=== PATIENT | female | born 1990 | race Caucasian/White ===

== ENCOUNTER 2022-02-22 02:22 | Emergency (ER) | payer MEDICAID ==
[~2022-02-22] VITALS: Ht 162.6 cm; Wt 82.3 kg
[2022-02-22 02:30] VITALS: BP 126/76
--- NOTE | 2022-02-22 02:34 | NUR ---
PT TO BED 11
--- NOTE | 2022-02-22 02:36 | NUR ---
Patient BIB by family from home. C/O toothache x 3 weeks, Patient reported, had broken teeth, right upper and lower molars for 3 weeks. Patient did not go to dental , due to [place] time and busy with her schedule. A/O,X4, right side toothache, pain rate 10/10, radiate to right facial and right temporal area.
--- NOTE | 2022-02-22 02:44 | NUR ---
Dr. Cox examining patient.
[2022-02-22] MEDS ORDERED: NAPR-54 PO (02:52)
[2022-02-22] MEDS ORDERED: PENI500T20 PO (02:52)
[2022-02-22 03:00] VITALS: BP 126/76
--- NOTE | 2022-02-22 03:00 | NUR ---
Patient discharged with v/s stable. Written and verbal after care instructions given and explained. Patient alert, oriented and verbalized understanding of instructions. Ambulatory with steady gait. All questions addressed prior to discharge. ID band removed. Patient advised to follow up with PMD. Rx of NAPROSYN AND AMOX V POTASSIUM given. Patient educated on indication of medication including possible reaction and side effects. Opportunity to ask questions provided and answered.
== END 2022-02-22 03:00 | disposition home or self-care (01) ==
LOC: MED 02:22
DX: K02.9 Dental caries, unspecified (principal); Z88.1 Allergy status to other antibiotic agents; Z79.899 Other long term (current) drug therapy
CPT/HCPCS: 99283

== ENCOUNTER 2022-05-26 05:15 | Emergency (ER) | payer MEDICAID ==
[~2022-05-26] VITALS: Ht 162.6 cm; Wt 72.6 kg
[2022-05-26 05:15] VITALS: BP 130/95
[~2022-05-26 05:15] MED LIST: NAPR-54 PO; PENI500T20 PO
[2022-05-26] MEDS ORDERED: NACL 0.9% 1,000 ML IV ONE (05:35)
[2022-05-26] MEDS ORDERED: LACTULOSE 20 GM/30 ML UDC PO ONE (05:40)
[2022-05-26] MEDS ORDERED: POLYETHYLENE GLYCOL 17 GM/PKT PO ONE (05:40)
--- NOTE | 2022-05-26 06:11 | NUR ---
Dr. Aceves examining patient.
[2022-05-26 06:13] LABS: BASOPHILS # (AUTO) 0.1 K/uL (0.00-0.22); BASOPHILS % (AUTO) 0.6 % (0.0-2.0); EOSINOPHILS # (AUTO) 0.3 K/uL (0-0.4); EOSINOPHILS % (AUTO) 3.1 % (0.0-4.0); HEMATOCRIT 39.8 % (36-48); HEMOGLOBIN 13.4 g/dL (12.0-16.0); LYMPHOCYTES # (AUTO) 2.5 K/uL (2.5-16.5); LYMPHOCYTES % (AUTO) 28.2 % (20.5-51.1); MEAN CORPUSCULAR HEMOGLOBIN 28 pg (27-31); MEAN CORPUSCULAR HGB CONC 34 g/dL (33-37); MEAN CORPUSCULAR VOLUME 82.4 fL (80-94); MONOCYTES # (AUTO) 0.5 K/uL (0.8-1.0); MONOCYTES % (AUTO) 5.8 % (1.7-9.3); NEUTROPHILS # (AUTO) 5.5 K/uL (1.8-7.7); NEUTROPHILS % (AUTO) 62.3 % (42.2-75.2); PLATELET COUNT (AUTO) 316 K/uL (140-450); RED BLOOD CELL COUNT(AUTO) 4.83 MIL/uL (4.20-5.40); RED CELL DISTRIBUTION WIDTH 13.2 % (11.6-13.7); WHITE BLOOD COUNT (AUTO) 8.8 K/uL (4.8-10.8)
--- NOTE | 2022-05-26 06:15 | NUR ---
pt to CT via w/c
[2022-05-26 06:34] LABS: ALBUMIN 4.1 g/dL (3.4-5.0); ANION GAP 8.1 (8-16); CARBON DIOXIDE 31.4 mmol/L (21-32); CREATININE 0.8 mg/dL (0.6-1.3); POTASSIUM 3.5 mmol/L (3.5-5.1); TOTAL BILIRUBIN 0.3 mg/dL (0.0-1.0)
--- NOTE | 2022-05-26 07:22 | NUR ---
Pt report given to Lorraine HUNTER. Transfer of care at this time.
[2022-05-26] MEDS ORDERED: HYDR-2734 TP (07:42)
[2022-05-26] MEDS ORDERED: POLY17PD50 PO (07:42)
--- NOTE | 2022-05-26 07:51 | NUR ---
Patient discharged with v/s stable. Written and verbal after care instructions given and explained. Patient alert, oriented and verbalized understanding of instructions. Ambulatory with steady gait. All questions addressed prior to discharge. ID band removed. Patient advised to follow up with PMD. Rx of MIRALAX, HYDROCORTISONE given. Patient educated on indication of medication including possible reaction and side effects. Opportunity to ask questions provided and answered.
== END 2022-05-26 07:51 | disposition home or self-care (01) ==
LOC: MED 05:15
DX: K59.00 Constipation, unspecified (principal); Z79.899 Other long term (current) drug therapy; Z79.1 Long term (current) use of non-steroidal anti-inflammatories (NSAID); Z79.2 Long term (current) use of antibiotics; Z88.1 Allergy status to other antibiotic agents
CPT/HCPCS: 36415; 74176; 80053; 81025; 85025; 96360; 99284; J7030

== ENCOUNTER 2022-06-10 02:10 | Emergency (ER) | payer MEDICAID ==
[~2022-06-10 02:10] MED LIST changes: +HYDR-2734 TP; +POLY17PD50 PO
--- NOTE | 2022-06-10 02:52 | NUR ---
CALLED TO TRIAGE, NO ANSWER
--- NOTE | 2022-06-10 03:09 | NUR ---
CALLED TO TRIAGE, NO ANSWER
--- NOTE | 2022-06-10 03:25 | NUR ---
CALLED TO TRIAGE, NO ANSWER. LWBS
== END 2022-06-10 02:50 | disposition left against medical advice (07) ==
LOC: MED 02:10
DX: K59.00 Constipation, unspecified (principal); Z53.21 Procedure and treatment not carried out due to patient leaving prior to being seen by health care provider

== ENCOUNTER 2022-06-15 16:12 | Emergency (ER) | payer MEDICAID ==
[~2022-06-15] VITALS: Ht 162.6 cm; Wt 74.8 kg
[2022-06-15 16:32] VITALS: BP 129/71
--- NOTE | 2022-06-15 16:40 | NUR ---
AMBULATED TO CHAIR A
[2022-06-15] MEDS ORDERED: LACT10SO11 PO (17:06)
[2022-06-15] MEDS ORDERED: MAGN296S48 PO (17:06)
[2022-06-15] MEDS ORDERED: GLYPS RC (17:07)
[2022-06-15 17:43] VITALS: BP 129/71
--- NOTE | 2022-06-15 17:43 | NUR ---
Patient discharged with v/s stable. Written and verbal after care instructions given and explained. Patient alert, oriented and verbalized understanding of instructions. Ambulatory with steady gait. All questions addressed prior to discharge. ID band removed. Patient advised to follow up with PMD. Rx of glycerin, lactulose, citroma (sent) given. Patient educated on indication of medication including possible reaction and side effects. Opportunity to ask questions provided and answered.
== END 2022-06-15 17:43 | disposition home or self-care (01) ==
LOC: MED 16:12
DX: K59.00 Constipation, unspecified (principal); Z79.899 Other long term (current) drug therapy; Z79.2 Long term (current) use of antibiotics; Z79.1 Long term (current) use of non-steroidal anti-inflammatories (NSAID); Z88.1 Allergy status to other antibiotic agents
CPT/HCPCS: 99283

== ENCOUNTER 2023-04-14 06:25 | Emergency (ER) | payer MEDICAID ==
[~2023-04-14] VITALS: Ht 162.6 cm; Wt 72.6 kg
[~2023-04-14 06:25] MED LIST changes: +GLYPS RC; +LACT10SO11 PO; +MAGN296S48 PO
[2023-04-14 06:40] VITALS: BP 136/74; PULSE 93; RESP 18; TEMP 97.1; O2SAT 97
[2023-04-14] MEDS: LIDOCAINE MPF 1% 10 MG/ML VIAL INJ ONE (06:58)
[2023-04-14 07:46] VITALS: O2SAT 97
[2023-04-14] MEDS ORDERED: LIDOCAINE MPF 1% 5 ML ONE ×2 (07:56→07:57)
[2023-04-14 08:10] VITALS: BP 133/72; PULSE 89; RESP 18; TEMP 97.8; O2SAT 97
[2023-04-14] MEDS ORDERED: SULF-59 PO (08:32)
[2023-04-14] MEDS ORDERED: IBUP-2213 PO (08:50)
[2023-04-14] MEDS: HYDROcodone/APAP 5/325 MG 1 TAB TAB PO ONE (09:05)
== END 2023-04-14 09:18 | disposition home or self-care (01) ==
LOC: MED 06:25
DX: L02.212 Cutaneous abscess of back [any part, except buttock and flank] (principal); L03.312 Cellulitis of back [any part except buttock and flank]; F17.200 Nicotine dependence, unspecified, uncomplicated; Z79.899 Other long term (current) drug therapy; Z88.1 Allergy status to other antibiotic agents
CPT/HCPCS: 10060; 81025; 99284; J2001